=== PATIENT | female | born 1995 | race Caucasian/White ===

== ENCOUNTER → 2017-12-10 | Outpatient (CLI) | payer OTHER ==
--- NOTE | 2017-12-10 18:28 | CT ---
EXAM DESCRIPTION: Abdomen/Pelvis w/Contrast CLINICAL HISTORY:22 years Female, STONES KIDNEY Comparison: None TECHNIQUE: Contiguous axial images of the abdomen and pelvis were obtained followed by reconstruction images. This exam was performed according to our departmental dose-optimization program, which includes automated exposure control, adjustment of the mA and/or kV according to patient size and/or use of iterative reconstruction technique. FINDINGS: Lung bases: Lung bases are clear. Heart: Visualized heart is within normal limits in size. Liver:Unremarkable. No focal liver lesion. Gallbladder:Cholecystectomy clips seen in gallbladder fossa. Spleen: Focal hypodense lesion, likely a cyst or small hemangioma Pancreas: Pancreas is unremarkable. Adrenal glands:Unremarkable Kidneys/ureters:Kidneys and ureters are unremarkable. Bladder:Unremarkable. Heterogeneous uterus with trace pelvic fluid and left adnexal cyst, likely physiological given patient's age. Free fluid: No free fluid. Lymph nodes: No abnormal lymph nodes. Stomach/small bowel: Stomach is unremarkable. Small bowel is unremarkable. Colon: Colon is unremarkable. Appendix: Appendix is seen and is within normal limits. Vascular structures: Unremarkable Bones: No acute osseous abnormality. Soft tissues: Unremarkable. IMPRESSION: No hydronephrosis. No nephrolithiasis. Heterogeneous uterus with trace pelvic fluid and left adnexal cyst, likely physiological given patient's age. Otherwise, no acute intra-abdominal abnormality. Electronically signed by: Varun Meraz MD 12/10/2017 6:27 PM CDT
== END ==
LOC: LAB.O 15:14
PROVIDERS: ATTEND Nurse Practitioner Family
DX: R31.9 Hematuria, unspecified (principal)

== ENCOUNTER → 2018-03-26 | Outpatient (CLI) | payer OTHER ==
--- NOTE | 2018-03-26 13:22 | US ---
EXAM DESCRIPTION: Soft Tissue,Abdomen CLINICAL HISTORY: 23 years Female, R/O UMBILICAL HERNIA COMPARISON: None. TECHNIQUE: Multiple static transverse and longitudinal sonographic images of the umbilical region were obtained in the palpable area of concern. FINDINGS: No evidence of umbilical hernia. No cystic or solid mass lesion is visualized. IMPRESSION: No abnormality is identified sonographically, in the umbilical region in the area of concern. Electronically signed by: Lea Comer MD 03/26/2018 1:20 PM CDT
== END ==
LOC: US 09:44
PROVIDERS: ATTEND Nurse Practitioner Family
DX: R10.9 Unspecified abdominal pain (principal)